=== PATIENT | male | born 1975 | race Caucasian/White ===

== ENCOUNTER 2021-12-14 00:11 | Emergency (ER) | payer BC ==
[~2021-12-14] VITALS: Ht 180.3 cm; Wt 86.2 kg
[2021-12-14] MEDS ORDERED: ACET-2079 PO (02:57)
[2021-12-14] MEDS ORDERED: IBUP-2070 PO (02:57)
[2021-12-14] MEDS ORDERED: KETOROLAC 15MG/ML VIAL (15MG/ML) IV ONE (03:00)
[2021-12-14] MEDS ORDERED: HYDROCODONE/ACETAMINOPHEN 10/325 MG TAB PO ONE (03:00)
[2021-12-14 03:57] VITALS: BP 124/88
== END 2021-12-14 04:02 | disposition home or self-care (01) ==
LOC: EDH 00:11
DX: S50.811A Abrasion of right forearm, initial encounter (principal); S80.811A Abrasion, right lower leg, initial encounter; S70.311A Abrasion, right thigh, initial encounter; V29.3XXA Motorcycle rider (driver) (passenger) injured in unspecified nontraffic accident, initial encounter; Y93.89 Activity, other specified; Y92.89 Other specified places as the place of occurrence of the external cause; Y99.8 Other external cause status
CPT/HCPCS: 73600; 73630; 96374; 99284; J1885